=== PATIENT | male | born 1990 | race African-American/Black ===

== ENCOUNTER 2022-12-18 09:28 | Emergency (ER) | payer OTHER, BC ==
[2022-12-18 10:09] VITALS: BP 120/69; PULSE 83; RESP 18; TEMP 98.4; BMI 30.3
[2022-12-18] MEDS ORDERED: LIDOCAINE 5% TOPICAL PATCH TP ONE (10:57)
[2022-12-18] MEDS ORDERED: diazePAM 5 MG TABLET PO ONE (10:57)
[2022-12-18] MEDS ORDERED: KETOROLAC TROMETHAMINE 30 MG/1 ML VIAL IM ONE (10:57)
[2022-12-18] MEDS ORDERED: ACETAMINOPHEN 500 MG TABLET (FP) PO ONE (10:57)
[2022-12-18] MEDS ORDERED: diazePAM 5 MG TABLET ONE (11:00)
[2022-12-18] MEDS ORDERED: KETOROLAC TROMETHAMINE 30 MG/1 ML VIAL ONE (11:00)
[2022-12-18] MEDS ORDERED: LIDOCAINE 5% TOPICAL PATCH ONE (11:00)
[2022-12-18] MEDS ORDERED: ACETAMINOPHEN 500 MG TABLET (FP) ONE (11:00)
[2022-12-18] MEDS ORDERED: LIDOCAINE PATCH REMOVAL MC ONE (22:00)
== END 2022-12-18 12:09 | disposition home or self-care (01) ==
LOC: JERFT 09:28 → JER 09:28 → JERFT 12:09
PROC: 3E0233Z Introduction of Anti-inflammatory into Muscle, Percutaneous Approach (ICD-10-PCS; principal; 2022-12-18)
DX: M62.830 Muscle spasm of back (principal); V43.52XA Car driver injured in collision with other type car in traffic accident, initial encounter
CPT/HCPCS: 99284-25